=== PATIENT | male | born 1950 | race Caucasian/White ===

== ENCOUNTER 2019-07-11 14:54 | Outpatient (CLI) | payer MEDICARE | END 2019-07-11 14:55 | disposition home or self-care (01) | LOC: CTENTCT 14:54 | PROVIDERS: ATTEND Specialist | DX: J32.9 Chronic sinusitis, unspecified (principal) | CPT/HCPCS: 70486 ==

== ENCOUNTER 2019-07-16 08:42 | Outpatient (CLI) | payer MEDICARE ==
--- NOTE | 2019-07-20 11:34 | RAD ---
Modified barium swallow HISTORY: Dysphagia. Paralysis of vocal cords. FINDINGS: Exam was performed by speech pathology with multiple consistencies. Video review is availab le and demonstrates discoordination of bolus formation and swallowing with early spill of all consistencies. Deep penetration early in the exam with thin liquids. Large amount of pooling within t he valleculae and piriform sinuses with limited clearing upon secondary swallowing. Silent aspiration evident as the attending liquid slowly dripped below the level of the larynx. The esophagus below the level of the hypopharynx was not evaluated. With the barium tablet, there was very poor oral control. It was not seen to be swallowed. Fluoroscopy time 30 seconds. Please see separate detailed report from speech pathology.
== END 2019-07-16 08:43 | disposition home or self-care (01) ==
PROVIDERS: ATTEND Specialist
DX: I69.891 Dysphagia following other cerebrovascular disease (principal); R13.13 Dysphagia, pharyngeal phase; J38.01 Paralysis of vocal cords and larynx, unilateral
CPT/HCPCS: 74230

== ENCOUNTER 2019-09-02 08:52 | Inpatient (IN) | payer MEDICARE ==
[2019-09-02 09:32] LABS: Hemoglobin 14.6 g/dL (14.0-18.0); Mean Corpuscular Hemoglobin 34.4 pg (27.0-31.0); Mean Corpuscular Volume 98.3 fL (78.0-98.0); Mean Platelet Volume 9.6 fL (7.4-10.4); Platelet Count 150 thou/uL (130-400); RBC Distribution Width 12.2 % (11.5-14.5); Red Blood Cell (RBC) Count 4.25 mill/uL (4.70-6.10); White Blood Cell (WBC) Count 15.2 thou/uL (4.8-10.8)
[2019-09-02 09:41] LABS: ALT (SGPT) 35 U/L (8-55); AST (SGOT) 30 U/L (5-34); Albumin 4.6 g/dL (3.4-4.8); Alkaline Phosphatase 97 U/L (40-110); Anion Gap 13 mmol/L (10-20); BUN (Urea Nitrogen) 17 mg/dL (8.4-25.7); Bilirubin, Total 1.4 mg/dL (0.2-1.2); Calc. Creatinine Clearance 0 mL/min (70-130); Carbon Dioxide 25 mmol/L (23-31); Chloride 107 mmol/L (98-107); Estimated GFR-MDRD 63; Glucose 111 mg/dL (80-115); Lymphocytes 10 % (21-51); MDiff Complete? YES; Monocytes 8 % (0-10); Neutrophil 80 % (42-75); Platelet Morphology Comment Appears Adequate; Protein, Total 6.6 g/dL (5.8-8.1); Reactive Lymphocytes 2 % (0-10); Sodium 141 mmol/L (136-145)
--- NOTE | 2019-09-02 09:45 | RAD ---
Exam: Chest one view HISTORY:Dyspnea Comparison: 05/03/2016 and 06/24/2007 FINDINGS: Cardiac silhouette:Normal cardiac silhouette Incompletely evaluated bilateral vagal nerve stimulators Aorta: Unremarkable Pulmonary vessels: Normal Costophrenic angles: Clear LUNGS: Right lower lobe infiltrate. Pneumothorax: None Osseous abnormalities: None IMPRESSION: Right lower lobe infiltrate. Continued surveillance to ensure resolution.
[2019-09-02] MEDS ORDERED: Sodium Chloride 0.9% 100 ML ONE (10:50)
[2019-09-02] MEDS ORDERED: Aspirin Chewable 81 MG TAB ONE (10:50)
[2019-09-02] MEDS ORDERED: cefTRIAXone\\ROCEPHIN 2 GM VIAL ONE (10:50)
--- NOTE | 2019-09-02 12:04 | CT ---
Exam: Head CT without contrast HISTORY: Parkinson's. Dementia. COMPARISON: none FINDINGS: Hemorrhage: No intraparenchymal hemorrhage or extra-axial hematoma. Brain parenchyma: Cortical wallace-white matter differentiation is preserved. No mass effect or midline shift. Basilar cisterns are patent.Deep brain stimulators are noted, particularly position Ventricular system: Ventricles and sulci are patent and symmetric. Calvarium: Intact. Sinuses and mastoid air cells: Adequate aeration. IMPRESSION: No acute intracranial process.
[2019-09-02] MEDS ORDERED: Azithromycin 500 MG VIAL ONE (12:13)
[2019-09-02] MEDS ORDERED: Ondansetron PF 4 MG/2 ML Vial ONE (12:29)
[2019-09-02 13:13] LABS: Troponin I 0.027 ng/mL (< 0.028)
[2019-09-02] MEDS ORDERED: Ondansetron PF 4 MG/2 ML Vial IVP PRN (13:13)
[2019-09-02] MEDS ORDERED: Bisacodyl 5 MG TAB PO PRN (13:13)
--- NOTE | 2019-09-02 15:01 | HP ---
PRIMARY CARE PROVIDER: Rommel Alexander MD CHIEF COMPLAINT: Shortness of breath. HISTORY OF PRESENT ILLNESS: Mr. Ford is a pleasant 69-year-old gentleman, who was seen at [facility] on September 02, 2019. He has a history of Parkinson disease. Over the last 2 to 3 years, he has had issues with his swallow function. He has been receiving speech therapy to strengthen his pharyngeal muscles 2 times a week over the last 3 to 4 weeks. He reports cough of a few weeks duration, no sputum. He has been feeling shortness of breath over the last 1 week. Shortness of breath is worse with exertion. He denies any orthopnea or paroxysmal nocturnal dyspnea. He had chills 2 days ago. Last night, he was unable to sleep. He felt weaker than usual. He denies any body aches. He has received influenza vaccine this year. He also reports left-sided chest discomfort. He describes it as sharp, nonradiating, nonexertional, and nonpleuritic. He is unable to describe it further. He presented to the emergency room because of shortness of breath. In the emergency room, he was diagnosed with pneumonia and referred to Hospitalist Service for admission. REVIEW OF SYSTEMS: All systems were reviewed and found to be negative except for the pertinent positives mentioned above. PAST MEDICAL HISTORY: Parkinson disease and dementia. PAST SURGICAL HISTORY: Back surgery x2 and deep brain stimulator implantation. SOCIAL HISTORY: He denies any alcohol, recreational drug use or tobacco use. FAMILY HISTORY: No family history of premature coronary artery disease. ALLERGIES: LISINOPRIL. CURRENT MEDICATIONS: 1. Zoloft 25 mg daily. 2. Aricept 10 mg daily. 3. Levothyroxine 50 mcg daily. 4. Carbidopa/levodopa 10/100 mg 3 times a day. 5. Namenda 10 mg 2 times a day. PHYSICAL EXAMINATION: GENERAL: On examination, Mr. Ford is awake and alert, not in acute distress. VITAL SIGNS: Blood pressure is 116/79; pulse 84, it was 98 earlier; respiratory rate 20, and oxygen saturation 100% on room air. He is afebrile. EYES: No scleral icterus. No conjunctival pallor. ENT: Moist mucosal membranes. No oropharyngeal erythema or exudates. NECK: Supple, nontender. Trachea is midline. RESPIRATORY: Accessory muscles of breathing are not active. Chest wall movements are symmetric bilaterally. Lung examination reveals right basal crackles. CARDIOVASCULAR: S1 and S2 are heard, regular. Peripheral pulses palpable. ABDOMEN: Soft, nontender. Bowel sounds are heard. NEUROLOGIC: He has cogwheel rigidity and bradykinesia. LYMPHATIC: No cervical lymphadenopathy. PSYCHIATRIC: Normal mood. Normal affect. The patient is oriented to person, place, and time. SKIN: No rashes or subcutaneous nodules. DIAGNOSTIC DATA: Mr. Ford labs and investigations were reviewed. Electrocardiogram by my review shows normal sinus rhythm, no ST changes to suggest an acute coronary syndrome. Chest x-ray by my review did not show any pulmonary infiltrates. Noncontrast CT scan of the brain did not show any acute intracranial process. He has leukocytosis with 15,200 white cells, of which 80% are neutrophils. Hemoglobin and platelet count are normal. Comprehensive metabolic profile is unremarkable except for elevated total bilirubin of 1.4 and decreased globulin of 2.0. Troponin I is negative x2. BNP is 128.2. ASSESSMENT AND PLAN: Mr. Ford is a pleasant 69-year-old gentleman, who was seen at [facility] on September 02, 2019. His problem list includes: 1. Pneumonia: Mr. Ford is presenting with pneumonia, most likely secondary to aspiration. He has received ceftriaxone and azithromycin in the emergency room, which I will continue. He will be admitted to the hospital for further management. We will also consult speech therapy for swallow evaluation. 2. Parkinson disease: Continue carbidopa/levodopa. 3. Chest pain: Etiology is unclear. Monitor on telemetry, repeat troponin. The patient does have mild tenderness on pressure, could be musculoskeletal. 4. Dementia: Continue Aricept and Namenda. 5. Hypothyroidism: Continue Synthroid. Many thanks for allowing me to participate in your patient's care. Please feel free to contact me with any questions or concerns. LEVEL OF RISK: High. LEVEL OF COMPLEXITY: High. Job ID: [id number] MTDD
[2019-09-02 16:17] LABS: Troponin I 0.017 ng/mL (< 0.028)
[2019-09-03 05:11] LABS: #Eosinphils 0.2 thou/uL (0.0-0.7); #Lymphocytes 1.5 thou/uL (1.20-3.40); #Monocytes 0.6 thou/uL (0.11-0.59); #Neutrophils 5.9 thou/uL (1.40-6.50); %Basophils 0.4 % (0.0-1.0); %Lymphocytes 18.2 % (21.0-51.0); %Monocytes 7.4 % (0.0-10.0); Hemoglobin 11.6 g/dL (14.0-18.0); Mean Corpuscular HGB CONC 35.3 g/dL (32.0-36.0); Mean Corpuscular Hemoglobin 34.9 pg (27.0-31.0); Mean Corpuscular Volume 98.8 fL (78.0-98.0); Mean Platelet Volume 9.5 fL (7.4-10.4); Platelet Count 112 thou/uL (130-400); Platelet Morphology Comment Appears Decreased; RBC Distribution Width 12.3 % (11.5-14.5); Red Blood Cell (RBC) Count 3.33 mill/uL (4.70-6.10); White Blood Cell (WBC) Count 8.2 thou/uL (4.8-10.8)
[2019-09-03 05:20] LABS: Anion Gap 10 mmol/L (10-20); BUN (Urea Nitrogen) 17 mg/dL (8.4-25.7); Calc. Creatinine Clearance 62 mL/min (70-130); Calcium 8.6 mg/dL (7.8-10.44); Carbon Dioxide 24 mmol/L (23-31); Chloride 110 mmol/L (98-107); Estimated GFR-MDRD 66; Glucose 95 mg/dL (80-115); Sodium 140 mmol/L (136-145)
[2019-09-03] MEDS: Enoxaparin Sodium 40 MG/0.4 ML SYRINGE SC SCH (09:02)
[2019-09-03] MEDS: cefTRIAXone\\ROCEPHIN 1 GM in Sodium Chloride 0.9% 100 ML IVPB SCH (10:52)
--- NOTE | 2019-09-03 13:28 | PDOC.HOSPP ---
- Subjective Encounter Date: 09/03/19 Encounter Time: 07:40 Subjective: Pt seen for followup re: pneumonia. States he feels better. - Objective Vital Signs & Weight: Vital Signs (12 hours) Temp Pulse Resp BP Pulse Ox 09/03/19 11:24 97.4 F L 69 16 96/54 L 93 L 09/03/19 07:08 63 16 96 09/03/19 04:00 97.9 F 65 16 115/60 95 Weight Weight 148 lb 5 oz I&O: 09/02/19 09/03/19 09/04/19 06:59 06:59 06:59 Intake Total 240 Balance 240 Result Diagrams: 09/04/19 05:23 09/04/19 05:23 Additional Labs: Labs and MARs reviewed by me EKG Reviewed by me: Yes (Tele: NSR) Hospitalist ROS - Review of Systems Respiratory: reports: cough, sputum. denies: dry, shortness of breath, hemoptysis, SOB with excertion, pleuritic pain, wheezing Cardiovascular: denies: chest pain, palpitations, orthopnea, paroxysmal noc. dyspnea, edema, light headedness - Medication Medications: Active Medications Generic Name Dose Route Start Last Admin Trade Name Freq PRN Reason Stop Dose Admin Albuterol/Ipratropium 3 ml 09/02/19 19:00 09/03/19 07:08 Duoneb NEB 3 ml [id number] GWEN Administration Enoxaparin Sodium 40 mg 09/03/19 09:00 09/03/19 09:02 Lovenox SC 40 mg 0900 GWEN Administration Ceftriaxone Sodium 1 gm/ 100 mls @ 200 mls/hr 09/03/19 10:00 09/03/19 10:52 Sodium Chloride IVPB 100 mls Q24HR GWEN Administration Sodium Chloride 10 ml 09/03/19 09:00 09/03/19 09:02 Flush - Normal Saline IVF 10 ml Q12HR GWEN Administration - Exam General Appearance: NAD Eye: anicteric sclera ENT: moist mucosa Neck: supple Heart: RRR Respiratory: CTAB Gastrointestinal: soft, non-tender Extremities: no clubbing Neurological - other findings: cogwheel rigidity Psychiatric: normal affect Hosp A/P (1) Pneumonia Code(s): J18.9 - PNEUMONIA, UNSPECIFIED ORGANISM Status: Acute (2) Parkinsons disease Code(s): G20 - PARKINSON'S DISEASE Status: Chronic (3) Oropharyngeal dysphagia Code(s): R13.12 - DYSPHAGIA, OROPHARYNGEAL PHASE Status: Chronic (4) Dementia Code(s): F03.90 - UNSPECIFIED DEMENTIA WITHOUT BEHAVIORAL DISTURBANCE Status: Chronic (5) Chest pain Code(s): R07.9 - CHEST PAIN, UNSPECIFIED Status: Resolved (6) Sepsis Code(s): A41.9 - SEPSIS, UNSPECIFIED ORGANISM Status: Resolved - Plan plan discussed w/ family, continue antibiotics, out of bed/ambulate Continue IV ceftriaxone and azithromycin. Troponin normal, chest pain has resolved. Ambulate patient. Continue Aricept and Namenda.
[2019-09-03] MEDS: Azithromycin 500 MG in Sodium Chloride 0.9% 250 ML 250 ML IVPB SCH (13:52)
[2019-09-03 14:08] VITALS: BMI 21.9
[2019-09-03] MEDS ORDERED: Prevnar 13-Val Conj/PF 0.5 ML SYRINGE IM ONE (14:45)
[2019-09-03] MEDS ORDERED: Calcium Carbonate 500 MG ChewTAB PO SCH (21:45)
[2019-09-04] MEDS: Levothyroxine Sodium 75 MCG TAB PO SCH (05:44)
[2019-09-04 05:53] LABS: #Eosinphils 0.1 thou/uL (0.0-0.7); #Lymphocytes 1.1 thou/uL (1.20-3.40); #Monocytes 0.7 thou/uL (0.11-0.59); #Neutrophils 6.1 thou/uL (1.40-6.50); %Basophils 0.4 % (0.0-1.0); %Eosinophils 1.7 % (0.0-10.0); %Monocytes 8.9 % (0.0-10.0); Hemoglobin 11.5 g/dL (14.0-18.0); Mean Corpuscular HGB CONC 35.1 g/dL (32.0-36.0); Mean Corpuscular Hemoglobin 34.4 pg (27.0-31.0); Mean Platelet Volume 9.7 fL (7.4-10.4); Platelet Count 121 thou/uL (130-400); RBC Distribution Width 12.1 % (11.5-14.5); Red Blood Cell (RBC) Count 3.35 mill/uL (4.70-6.10); White Blood Cell (WBC) Count 8.1 thou/uL (4.8-10.8)
[2019-09-04 06:16] LABS: Anion Gap 12 mmol/L (10-20); BUN (Urea Nitrogen) 15 mg/dL (8.4-25.7); Calc. Creatinine Clearance 70 mL/min (70-130); Calcium 8.8 mg/dL (7.8-10.44); Carbon Dioxide 23 mmol/L (23-31); Chloride 108 mmol/L (98-107); Estimated GFR-MDRD 76; Glucose 100 mg/dL (80-115); Potassium 3.9 mmol/L (3.5-5.1); Sodium 139 mmol/L (136-145)
[2019-09-04] MEDS: Carbidopa/Levodopa 25-100 mg Tablet PO SCH ×3 (08:13→20:32)
[2019-09-04] MEDS: Enoxaparin Sodium 40 MG/0.4 ML SYRINGE SC SCH (08:13)
[2019-09-04] MEDS: cefTRIAXone\\ROCEPHIN 1 GM in Sodium Chloride 0.9% 100 ML IVPB SCH (10:29)
[2019-09-04] MEDS: Azithromycin 500 MG in Sodium Chloride 0.9% 250 ML 250 ML IVPB SCH (13:07)
--- NOTE | 2019-09-04 19:23 | PDOC.HOSPP ---
- Subjective Encounter Date: 09/04/19 Encounter Time: 10:20 Subjective: Pt seen for followup re: pneumonia. States he feels okay. - Objective Vital Signs & Weight: Vital Signs (12 hours) Temp Pulse Resp BP Pulse Ox 09/04/19 19:15 94 12 96 09/04/19 15:00 98.0 F 94 18 119/67 96 09/04/19 12:58 79 14 95 09/04/19 11:00 97.4 F L 80 20 107/67 96 09/04/19 08:00 96 09/04/19 07:30 98.1 F 90 20 101/61 96 Weight Admit Weight 149 lb 11.2 oz Weight 148 lb 5 oz I&O: 09/03/19 09/04/19 09/05/19 06:59 06:59 06:59 Intake Total 240 250 Balance 240 250 Result Diagrams: 09/04/19 05:23 09/04/19 05:23 Additional Labs: Labs and MARs reviewed by oh Hospitalist ROS - Review of Systems Constitutional: reports: weakness. denies: fever, chills, sweats, malaise Respiratory: reports: cough, sputum Gastrointestinal: denies: nausea, vomiting, abdominal pain, diarrhea, constipation, melena, hematochezia - Medication Medications: Active Medications Generic Name Dose Route Start Last Admin Trade Name Freq PRN Reason Stop Dose Admin Albuterol/Ipratropium 3 ml 09/02/19 19:00 09/04/19 19:15 Duoneb NEB 3 ml [id number] GWEN Administration Carbidopa/Levodopa 1 tab 09/04/19 09:00 09/04/19 14:40 Sinemet 25-100 PO 1 tab TID GWEN Administration Enoxaparin Sodium 40 mg 09/03/19 09:00 09/04/19 08:13 Lovenox SC Not Given 0900 GWEN Azithromycin 500 mg/ Sodium 250 mls @ 250 mls/hr 09/03/19 12:00 09/04/19 13: 07 Chloride IVPB 250 mls Q24HR GWEN Administration Ceftriaxone Sodium 1 gm/ 100 mls @ 200 mls/hr 09/03/19 10:00 09/04/19 10:29 Sodium Chloride IVPB 100 mls Q24HR GWEN Administration Levothyroxine Sodium 75 mcg 09/04/19 06:00 09/04/19 05:44 Synthroid PO 75 mcg 0600 GWEN Administration Memantine 10 mg 09/04/19 09:00 09/04/19 08:13 Namenda PO 10 mg BID GWEN Administration Sertraline HCl 100 mg 09/04/19 09:00 09/04/19 08:13 Zoloft PO 100 mg DAILY GWEN Administration Sodium Chloride 10 ml 09/03/19 09:00 09/04/19 08:13 Flush - Normal Saline IVF 10 ml Q12HR GWEN Administration - Exam General Appearance: NAD Eye: anicteric sclera ENT: moist mucosa Neck: supple Heart: RRR Respiratory: CTAB Gastrointestinal: soft, non-tender Extremities: no clubbing Musculoskeletal: diffuse muscle atrophy Psychiatric: normal affect, normal behavior Hosp A/P (1) Pneumonia Code(s): J18.9 - PNEUMONIA, UNSPECIFIED ORGANISM Status: Acute (2) Parkinsons disease Code(s): G20 - PARKINSON'S DISEASE Status: Chronic (3) Oropharyngeal dysphagia Code(s): R13.12 - DYSPHAGIA, OROPHARYNGEAL PHASE Status: Chronic (4) Dementia Code(s): F03.90 - UNSPECIFIED DEMENTIA WITHOUT BEHAVIORAL DISTURBANCE Status: Chronic (5) Chest pain Code(s): R07.9 - CHEST PAIN, UNSPECIFIED Status: Resolved (6) Severe protein-calorie malnutrition Code(s): E43 - UNSPECIFIED SEVERE PROTEIN-CALORIE MALNUTRITION Status: Acute (7) Sepsis Code(s): A41.9 - SEPSIS, UNSPECIFIED ORGANISM Status: Resolved - Plan plan discussed w/ family, continue antibiotics, PT/OT, out of bed/ambulate Consults: Palliative Care Continue IV ceftriaxone and azithromycin. Pt reportedly had difficulty standing up, consult PT. Ambulate patient. Continue Aricept and Namenda.
[2019-09-04] MEDS ORDERED: Donepezil HCl 10 MG TAB PO SCH (21:00)
[2019-09-05] MEDS: Levothyroxine Sodium 75 MCG TAB PO SCH (06:00)
[2019-09-05 06:09] LABS: #Eosinphils 0.2 thou/uL (0.0-0.7); #Lymphocytes 1.2 thou/uL (1.20-3.40); #Monocytes 0.7 thou/uL (0.11-0.59); #Neutrophils 5.5 thou/uL (1.40-6.50); %Basophils 0.5 % (0.0-1.0); %Eosinophils 2.2 % (0.0-10.0); %Lymphocytes 16.2 % (21.0-51.0); %Monocytes 9.4 % (0.0-10.0); %Neutrophils 71.8 % (42.0-75.0); Hemoglobin 11.6 g/dL (14.0-18.0); Mean Corpuscular HGB CONC 35.3 g/dL (32.0-36.0); Mean Corpuscular Hemoglobin 34.8 pg (27.0-31.0); Mean Corpuscular Volume 98.8 fL (78.0-98.0); Mean Platelet Volume 9.6 fL (7.4-10.4); Platelet Count 119 thou/uL (130-400); RBC Distribution Width 12.2 % (11.5-14.5); Red Blood Cell (RBC) Count 3.34 mill/uL (4.70-6.10); White Blood Cell (WBC) Count 7.7 thou/uL (4.8-10.8)
[2019-09-05 06:26] LABS: Anion Gap 12 mmol/L (10-20); BUN (Urea Nitrogen) 15 mg/dL (8.4-25.7); Calc. Creatinine Clearance 67 mL/min (70-130); Carbon Dioxide 25 mmol/L (23-31); Chloride 106 mmol/L (98-107); Estimated GFR-MDRD 73; Glucose 91 mg/dL (80-115); Potassium 4.3 mmol/L (3.5-5.1); Sodium 139 mmol/L (136-145)
[2019-09-05 08:44] VITALS: BP 111/71; TEMP 98.3
[2019-09-05] MEDS: Carbidopa/Levodopa 25-100 mg Tablet PO SCH (08:45)
[2019-09-05] MEDS: Enoxaparin Sodium 40 MG/0.4 ML SYRINGE SC SCH (08:45)
[2019-09-05] MEDS: cefTRIAXone\\ROCEPHIN 1 GM in Sodium Chloride 0.9% 100 ML IVPB SCH (08:46)
[2019-09-05] MEDS: Azithromycin 500 MG in Sodium Chloride 0.9% 250 ML 250 ML IVPB SCH (12:20)
--- NOTE | 2019-09-05 19:15 | DIS ---
DATE OF ADMISSION: 09/02/2019 DATE OF DISCHARGE: 09/05/2019 PRIMARY CARE PROVIDER: Dr. Ly Alexander. DISCHARGE DIAGNOSES: 1. Sepsis. 2. Aspiration pneumonia. 3. Oropharyngeal dysphagia. 4. Severe protein-calorie malnutrition. 5. Physical deconditioning. CONDITION OF PATIENT ON THE DAY OF DISCHARGE: Stable. I assessed Mr. Ford on the day of discharge. He denies any chest pain or shortness of breath. Vital signs are stable. S1 and S2 are heard, regular. Lungs are clear to auscultation bilaterally. DISCHARGE MEDICATIONS: 1. Carbidopa/levodopa one tablet 3 times a day. 2. Aricept 10 mg at bedtime. 3. Synthroid 75 mcg daily. 4. Memantine 10 mg 2 times a day. 5. Zoloft 100 mg daily. 6. Augmentin 875 mg 2 times a day for 1 week. 7. DuoNeb q.6 hours and p.r.n. POST-DISCHARGE FOLLOWUP: With primary care provider in 1-2 weeks. HOSPITAL COURSE: Mr. Ford is a pleasant 69-year-old gentleman, who was admitted to [facility] on 09/02/2019, for aspiration pneumonia. He improved with oxygen, antibiotics, and bronchodilators. He was evaluated by Therapy Services. He was found to be deconditioned. He has been accepted to [facility] for inpatient rehabilitation therapy. DIET: Heart healthy and Ensure Enlive b.i.d. ACTIVITY: As tolerated. Many thanks for allowing me to participate in your patient's care. Please feel free to contact me with any questions or concerns. DISCHARGE DESTINATION: [facility]. TIME SPENT: Total amount of time spent coordinating this discharge: 33 minutes. Job ID: [id number] MTDD
[2019-09-05] MEDS ORDERED: Amoxicillin/Potassium Clav 875 MG TAB PO SCH (21:00)
--- NOTE | 2019-09-07 08:43 | PQF ---
BEE CARBAJAL DAVID [id number] CLINICAL DOCUMENTATION CLARIFICATION FORM: POST DISCHARGE Addendum to original discharge summary date: ____ Late entry note date: __ DATE:09/07/2019 ATTN:SUE AHMADI Please exercise your independent, professional judgment in responding to the clarification form. Clinical indicators are provided on the bottom of this form for your review Diagnosis:Sepsis Present on Admission (POA): [ x ] Yes [ ] No [ ] Unable to determine Coding guidelines require hospitals to identify whether a diagnosis was present on admission (POA) or not. To accurately assign the appropriate POA indicator, this information must be clearly documented within the medical record. CLINICAL INDICATORS - SIGNS / SYMPTOMS / LABS [id number] in ED on 09/02 by Sharer Farheen Pneumonia most likely secondary to aspiration-Documented in H&P on By Jose A monahan [id number]-Documented in H&P on By Jose A monahan [id number]/[id number]./54-Documented in Hospitalist progress note on 09/03 by Jose A monahan Sepsis-Documented in Hospitalist progress note on 09/03 by Jose A monahan RISK FACTORS: Pneumonia most likely secondary to aspiration-Documented in H&P on By Jose A monahan TREATMENT: He has recived ceftriaxone and azithromycin in the emergency room which i will continue--Documented in H&P on By Jose A monahan Continue IV ceftriaxone and azithromyci-Documented in Hospitalist progress note on 09/03 by Jose A monahan [employer] Win[employer] Viewer (This form is maintained as a part of the permanent medical record) 2014 [employer]. All Rights Reserved Crista [email or web address] [not provided] MTDD
== END 2019-09-05 16:21 | DRG 871 ==
LOC: ERS 08:52 → 2NO 13:45 → T4-A 09-03 18:17
PROVIDERS: ADMIT Internal Medicine; ATTEND Internal Medicine
DX: A41.9 Sepsis, unspecified organism (principal); J69.0 Pneumonitis due to inhalation of food and vomit; E43 Unspecified severe protein-calorie malnutrition; G20 Parkinson's disease; F02.80 Dementia in other diseases classified elsewhere, unspecified severity, without behavioral disturbance, psychotic disturbance, mood disturbance, and anxiety; E03.9 Hypothyroidism, unspecified; R07.89 Other chest pain; R13.12 Dysphagia, oropharyngeal phase; Z68.21 Body mass index [BMI] 21.0-21.9, adult
CPT/HCPCS: 36415; 70450; 71045; 80048; 80053; 83605; 83880; 84484; 85025; 87040; 90471; 90670; 93005; 94640; 96365; 96367; 96375; G0009; J0456; J0696; J1650; J2405; J3490; J7050; J7620

== ENCOUNTER 2019-10-31 14:19 | Outpatient (CLI) | payer MEDICARE ==
--- NOTE | 2019-10-31 14:46 | RAD ---
EXAM: Chest PA and lateral: HISTORY: Pneumonia. COMPARISON: 09/14/2019, 06/23/2007 FINDINGS: Incompletely evaluated bilateral deep brain stimulators, unchanged. Heart: Normal cardiac silhouette Aorta: Unremarkable Pulmonary vessels: Normal Costophrenic angles: Costophrenic angles are clear. Lungs: No consolidation or masses. Pneumothorax: No pneumothorax Osseous structures: No osseous abnormalities IMPRESSION: No acute cardiopulmonary process.
[2019-10-31 16:24] LABS: #Eosinphils 0.3 thou/uL (0.0-0.7); #Monocytes 0.4 thou/uL (0.11-0.59); #Neutrophils 4.8 thou/uL (1.40-6.50); %Basophils 0.6 % (0.0-1.0); %Eosinophils 3.4 % (0.0-10.0); %Lymphocytes 26.2 % (21.0-51.0); %Monocytes 5.9 % (0.0-10.0); %Neutrophils 63.9 % (42.0-75.0); Hemoglobin 13.8 g/dL (14.0-18.0); Mean Corpuscular HGB CONC 35.3 g/dL (32.0-36.0); Mean Corpuscular Hemoglobin 35.1 pg (27.0-31.0); Mean Corpuscular Volume 99.4 fL (78.0-98.0); Mean Platelet Volume 10.3 fL (7.4-10.4); Platelet Count 156 thou/uL (130-400); RBC Distribution Width 12.2 % (11.5-14.5); Red Blood Cell (RBC) Count 3.92 mill/uL (4.70-6.10); White Blood Cell (WBC) Count 7.5 thou/uL (4.8-10.8)
[2019-10-31 16:29] LABS: Bacteria/HPF None Seen HPF (None Seen); Bilirubin Negative (Negative); Blood, Urine Negative (Negative); Calcium Oxalate Crystals 1+ HPF (None Seen); Clarity Clear (Clear); Glucose, Urine (Dipstick) Normal (Negative); Leukocyte Negative Leu/uL (Negative); Mucous/LPF Rare LPF (<2+); Nitrite Negative (Negative); Protein, Urine (Dipstick) 10 mg/dL (Neg-Trace); Squamous Epithelial None Seen HPF (0-3); WBC/HPF 0-3 HPF (0-3)
[2019-10-31 16:39] LABS: ALT (SGPT) 13 U/L (8-55); AST (SGOT) 27 U/L (5-34); Albumin 4.5 g/dL (3.4-4.8); Alkaline Phosphatase 100 U/L (40-110); Anion Gap 11 mmol/L (10-20); BUN (Urea Nitrogen) 17 mg/dL (8.4-25.7); Bilirubin, Total 0.7 mg/dL (0.2-1.2); Calc. Creatinine Clearance 0 mL/min (70-130); Calcium 9.1 mg/dL (7.8-10.44); Carbon Dioxide 29 mmol/L (23-31); Chloride 108 mmol/L (98-107); Estimated GFR-MDRD 54; Globulin 2.4 g/dL (2.4-3.5); Glucose 100 mg/dL (80-115); Potassium 4.1 mmol/L (3.5-5.1); Protein, Total 6.9 g/dL (5.8-8.1); Sodium 144 mmol/L (136-145)
== END 2019-10-31 14:20 | disposition home or self-care (01) ==
LOC: SCSRAD 14:19
PROVIDERS: ATTEND Family Medicine
DX: J18.9 Pneumonia, unspecified organism (principal); N30.00 Acute cystitis without hematuria
CPT/HCPCS: 36415; 71046; 80053; 81001; 85025